=== PATIENT | female | born 1955 | race Caucasian/White ===

== ENCOUNTER 2018-01-29 10:22 | Day surgery (SDC) | payer OTHER ==
[~2018-01-29 10:22] MED LIST: Kenalog-40 ONE; Marcaine 0.5% SDV 10 ML ONE; Xylocaine 1% Vial 30 ML PF IJ ONE
[2018-01-29] MEDS ORDERED: EMLA Cream 5 GM TP ONE (11:41)
--- NOTE | 2018-01-29 14:24 | XRAY ---
Indication: Right superior clunel nerve block. Intraoperative fluoroscopy was provided for 22 seconds. 2 digital spot images submitted for interpretation demonstrates 2 spinal needles projecting over the right iliac crest. Correlate with intraoperative findings/report.
--- NOTE | 2018-01-29 14:52 | XRAY ---
22 seconds fluoroscopy time in surgery for right superior clunel NB.
--- NOTE | 2018-01-30 13:01 | OP ---
DATE OF PROCEDURE: 01/29/2018 1158 SURGEON: Barak Segovia D.O. PROCEDURES PERFORMED: Right superior cluneal nerve block under fluoroscopic guidance. DESCRIPTION OF PROCEDURE: After consent was obtained, the patient was taken to the procedure room and laid in the prone position on the table. The skin over the injection site was prepped and draped in sterile fashion. And bony anatomy at the targeted injection site was visualized. Local anesthetic agent was introduced to anesthetize the skin in the subcutaneous tissue through injection site. A standard 25 Gauge needle was advanced into the target site with preservative free medication of 0.5 cc of 1% lidocaine preservative free plus 0.5% Marcaine 0.5 cc plus Kenalog 40 mg was injected. Skin was cleansed with alcohol and then a bandage was applied. No complications or adverse consequences were observed. There is 100% pain reduction after this procedure. The patient will be followed up at the next visit for re-evaluation.
== END 2018-01-29 12:30 | disposition home or self-care (01) ==
LOC: SDC-PAIN 10:22
PROVIDERS: ATTEND Internal Medicine
DX: M46.1 Sacroiliitis, not elsewhere classified (principal); M54.5 Low back pain; M46.92 Unspecified inflammatory spondylopathy, cervical region; Z79.891 Long term (current) use of opiate analgesic
CPT/HCPCS: 64450; 72020; 77003; J2001; J3301; A9270-GY

== ENCOUNTER 2018-04-02 12:01 | Day surgery (SDC) | payer OTHER ==
[2018-04-02] MEDS ORDERED: Marcaine 0.5% SDV 10 ML IJ ONE (12:02)
[2018-04-02] MEDS ORDERED: DIPRIVAN 200 MG/20 ML IV ONE (12:02)
[2018-04-02] MEDS ORDERED: solu-MEDROL 40 MG IV ONE (12:02)
[2018-04-02] MEDS ORDERED: LIDOCAINE HCL 1% AMPUL 5 ML IJ ONE (12:02)
[2018-04-02] MEDS ORDERED: Lactated Ringers 1,000 ML IV ONE (14:15)
--- NOTE | 2018-04-02 15:38 | XRAY ---
Indication: Right hip injection. Intraoperative fluoroscopy was provided for 16 seconds. Single digital spot image demonstrates spinal needle tip projecting over the femur neck. Correlate with intraoperative findings/report.
--- NOTE | 2018-04-02 17:00 | XRAY ---
16 seconds fluoroscopy time in surgery for right hip steroid injection.
--- NOTE | 2018-04-03 11:16 | OP ---
DATE OF PROCEDURE: 04/02/2018 1443 SURGEON: Barak Segovia D.O. PREOPERATIVE DIAGNOSIS: Right hip degenerative changes, osteoarthritis, right hip pain. POSTOPERATIVE DIAGNOSIS: Right hip degenerative changes, osteoarthritis, right hip pain. PROCEDURES PERFORMED: Right hip steroid injection under fluoroscopic guidance with anesthesia. DESCRIPTION OF PROCEDURE: After consent was obtained, the patient was taken to the procedure room and laid in the prone position on the table. The skin over the injection site was prepped and draped in sterile fashion. And bony anatomy at the targeted injection site was visualized. Local anesthetic agent was introduced to anesthetize the skin in the subcutaneous tissue through injection site. A standard 25 Gauge needle was advanced into the target site with preservative free medication of Solu-Medrol 40 mg was injected. Skin was cleansed with alcohol and then a bandage was applied. No complications or adverse consequences were observed. Preoperative pain level 8 or 9 out of 10 and postoperative pain level 3 out of 10. The patient will be followed up at the next visit for reevaluation.
== END 2018-04-02 14:30 | disposition home or self-care (01) ==
LOC: SDC-PAIN 12:01
PROVIDERS: ATTEND Internal Medicine
DX: M25.551 Pain in right hip (principal); M54.5 Low back pain; Z79.891 Long term (current) use of opiate analgesic
CPT/HCPCS: 20610; 73501; 77002; 77003; J2704; J2920

== ENCOUNTER 2018-07-31 06:06 | Day surgery (SDC) | payer OTHER ==
[2018-07-31] MEDS ORDERED: Ketamine HCl 50 MG/ML IV ONE (06:07)
[2018-07-31] MEDS ORDERED: DIPRIVAN 200 MG/20 ML IV ONE (06:07)
[2018-07-31] MEDS ORDERED: Lactated Ringers 1,000 ML IV SCH (06:30)
[2018-07-31 08:58] VITALS: O2SAT 100
[2018-07-31 09:19] VITALS: BP 114/73; PULSE 66
--- NOTE | 2018-07-31 10:13 | OP ---
SURGERY DATE/TIME: 07/31/2018 0805 PREOPERATIVE DIAGNOSIS: Screening colonoscopy. POSTOPERATIVE DIAGNOSES: 1) Normal colon. 2) Poor bowel prep. PROCEDURE: Colonoscopy. SURGEON: Serjio Mcclain M.D. ANESTHESIA: MAC by Avery Mcnamara CRNA. ESTIMATED BLOOD LOSS: None. SPECIMENS: None. DESCRIPTION OF PROCEDURE: After informed written consent was obtained, the patient was taken to the endoscopy suite. She underwent monitored anesthesia and a digital rectal exam showed normal sphincter tone and no internal lesions. The scope was inserted into the rectum and sequentially the entire colonic mucosa was traversed. The level of cecum was reached and verified with direct visualization of ileocecal valve. There was liquid and semi-solid stool present throughout the entire length of the colon making visualization difficult although there were no obvious polyps or mucosal abnormalities appreciable. Prior to withdrawal retroflexion was performed and showed no internal lesions. The scope was removed and the patient was transferred to the recovery room in good condition.
== END 2018-07-31 09:21 | disposition home or self-care (01) ==
LOC: SDC 06:06
PROVIDERS: ATTEND Family Medicine
DX: Z12.11 Encounter for screening for malignant neoplasm of colon (principal); I10 Essential (primary) hypertension; K21.9 Gastro-esophageal reflux disease without esophagitis
CPT/HCPCS: J2704

== ENCOUNTER 2019-05-06 09:53 | Day surgery (SDC) | payer OTHER ==
[2019-05-06] MEDS ORDERED: Marcaine 0.5% SDV 10 ML IJ ONE (09:54)
[2019-05-06] MEDS ORDERED: Xylocaine 1% Vial 30 ML PF IJ ONE (09:54)
[2019-05-06] MEDS ORDERED: Depo-Medrol 40 MG/ML IM ONE (09:54)
[2019-05-06] MEDS ORDERED: VERSED 5 MG/5 ML ONE (10:59)
--- NOTE | 2019-05-06 12:48 | XRAY ---
9 seconds fluoroscopy time in surgery for right SI joint injection.
--- NOTE | 2019-05-06 12:48 | XRAY ---
Indication: Right SI joint injection. Intraoperative fluoroscopy was provided for 9 seconds. 2 digital spot images submitted for interpretation demonstrates posterior needle tip projecting over the inferior right SI joint. Correlate with intraoperative findings/report.
[2019-05-06] MEDS ORDERED: Lactated Ringers 1,000 ML IV ONE (13:33)
== END 2019-05-06 12:00 | disposition home or self-care (01) ==
LOC: SDC-PAIN 09:53
PROVIDERS: ATTEND Psychiatry & Neurology Pain Medicine
DX: M46.1 Sacroiliitis, not elsewhere classified (principal); I10 Essential (primary) hypertension; M19.90 Unspecified osteoarthritis, unspecified site
CPT/HCPCS: 27096; 72020; 77002; J1030; J2001; J2250; G0260

== ENCOUNTER 2019-06-24 13:29 | Day surgery (SDC) | payer OTHER ==
[2019-06-24] MEDS ORDERED: Xylocaine 1% Vial 30 ML PF IJ ONE (13:30)
[2019-06-24] MEDS ORDERED: Marcaine 0.5% SDV 10 ML IJ ONE (13:30)
[2019-06-24] MEDS ORDERED: Depo-Medrol 40 MG/ML IM ONE (13:30)
[2019-06-24] MEDS ORDERED: VERSED 5 MG/5 ML ONE (14:14)
[2019-06-24] MEDS ORDERED: Lactated Ringers 1,000 ML IV ONE (15:57)
--- NOTE | 2019-06-24 16:31 | XRAY ---
Indication: Right hip injection. Intraoperative fluoroscopy was provided for 26 seconds. Single digital spot image obtained prone demonstrates needle tip projecting just lateral to the right greater trochanter. Small amount of contrast injected for needle tip placement. Correlate with intraoperative findings/report.
--- NOTE | 2019-06-24 16:43 | XRAY ---
26 seconds fluoroscopy time in surgery for right hip injection.
== END 2019-06-24 15:10 | disposition home or self-care (01) ==
LOC: SDC-PAIN 13:29
PROVIDERS: ATTEND Psychiatry & Neurology Pain Medicine
DX: M70.61 Trochanteric bursitis, right hip (principal); I10 Essential (primary) hypertension; Z79.899 Other long term (current) drug therapy
CPT/HCPCS: 73501; 77002; J1030; J2001; J2250

== ENCOUNTER 2019-07-15 14:11 | Day surgery (SDC) | payer OTHER ==
[2019-07-15] MEDS ORDERED: Marcaine 0.5% SDV 10 ML IJ ONE (14:12)
[2019-07-15] MEDS ORDERED: Xylocaine 1% Vial 30 ML PF IJ ONE (14:12)
[2019-07-15] MEDS ORDERED: Depo-Medrol 40 MG/ML IM ONE (14:12)
[2019-07-15] MEDS ORDERED: VERSED 5 MG/5 ML ONE ×2 (14:26→14:57)
[2019-07-15] MEDS ORDERED: Lactated Ringers 1,000 ML IV ONE (15:27)
--- NOTE | 2019-07-15 16:19 | XRAY ---
Indication: Left intra-articular hip injection. Intraoperative fluoroscopy was provided for 28 seconds. 2 digital spot images submitted for interpretation demonstrates needle tip just lateral to the femur head. Small amount of contrast injected for needle tip placement. Correlate with intraoperative findings/report.
--- NOTE | 2019-07-15 16:31 | XRAY ---
28 seconds fluoroscopy time in surgery for right intra-articular hip injection.
== END 2019-07-15 15:43 | disposition home or self-care (01) ==
LOC: SDC-PAIN 14:11
PROVIDERS: ATTEND Psychiatry & Neurology Pain Medicine
DX: M16.11 Unilateral primary osteoarthritis, right hip (principal); I10 Essential (primary) hypertension; Z79.899 Other long term (current) drug therapy
CPT/HCPCS: 20610; 73501; 77002; J1030; J2001; J2250; Q9966

== ENCOUNTER 2020-01-27 11:17 | Day surgery (SDC) | payer OTHER ==
[2020-01-27] MEDS ORDERED: Depo-Medrol 40 MG/ML IM ONE (11:18)
[2020-01-27] MEDS ORDERED: Marcaine 0.5% SDV 10 ML IJ ONE (11:18)
[2020-01-27] MEDS ORDERED: VERSED 5 MG/5 ML ONE (12:09)
[2020-01-27] MEDS ORDERED: Lactated Ringers 1,000 ML IV ONE (13:39)
--- NOTE | 2020-01-27 14:21 | XRAY ---
Indication: Right hip injection. Intraoperative fluoroscopy was provided for 14 seconds. Single digital spot image submitted for interpretation demonstrates needle tip just lateral to the right femur head. Small amount of contrast injected for needle tip placement. Correlate with intraoperative findings/report.
--- NOTE | 2020-01-27 14:23 | XRAY ---
14 seconds fluoroscopy time in surgery for right intra-articular knee injection.
[2020-01-27] MEDS ORDERED: Xylocaine 1% Vial 30 ML PF IJ ONE (16:06)
== END 2020-01-27 13:08 | disposition home or self-care (01) ==
LOC: SDC-PAIN 11:17
PROVIDERS: ATTEND Psychiatry & Neurology Pain Medicine
DX: M16.11 Unilateral primary osteoarthritis, right hip (principal); I10 Essential (primary) hypertension; Z79.899 Other long term (current) drug therapy
CPT/HCPCS: 20610; 73501; 77002; J1030; J2001; J2250; Q9966

== ENCOUNTER 2021-08-23 13:23 | Day surgery (SDC) | payer OTHER ==
[2021-08-23] MEDS ORDERED: Depo-Medrol 40 MG/ML IM ONE (13:24)
[2021-08-23] MEDS ORDERED: BUPIVACAINE 0.5% VIAL IJ ONE (13:24)
[2021-08-23] MEDS ORDERED: Xylocaine 1% Vial 30 ML PF IJ ONE (13:24)
[2021-08-23] MEDS ORDERED: VERSED 5 MG/5 ML ONE (14:57)
[2021-08-23] MEDS ORDERED: DIPRIVAN 200 MG/20 ML IV ONE (15:00)
[2021-08-23] MEDS ORDERED: Lactated Ringers 1,000 ML IV ONE (16:16)
--- NOTE | 2021-08-24 11:20 | XRAY ---
32 seconds fluoroscopy time in surgery for intra-articular and greater trochanteric bursa of the right hip.
--- NOTE | 2021-08-26 23:02 | XRAY ---
Indication: Right greater trochanteric bursa injection and intra-articular right hip injection. Intraoperative fluoroscopy was provided for 32 seconds. 2 digital spot images are submitted for interpretation. On the first image, a needle tip has been directed toward the upper lateral margin of the greater trochanter. Contrast has been injected for needle tip placement. Correlate with intraoperative findings/report. On the second image, another needle tip has been directed toward the lateral margin of the upper aspect of the right femoral neck. A small amount of contrast has again been injected for needle tip placement. Correlate with intraoperative findings/report.
== END 2021-08-23 15:35 | disposition home or self-care (01) ==
LOC: SDC-PAIN 13:23
PROVIDERS: ATTEND Psychiatry & Neurology Pain Medicine
DX: M16.11 Unilateral primary osteoarthritis, right hip (principal); M70.61 Trochanteric bursitis, right hip; Z79.899 Other long term (current) drug therapy
CPT/HCPCS: 20610; 73502; 77002; J1030; J2001; J2250; J2704; Q9966

== ENCOUNTER 2023-04-25 06:31 | Day surgery (SDC) | payer MEDICARE, OTHER ==
[~2023-04-25 06:31] MED LIST changes: -Kenalog-40 ONE; +Lactated Ringers 1,000 ML IV SCH; -Marcaine 0.5% SDV 10 ML ONE; -Xylocaine 1% Vial 30 ML PF IJ ONE
[2023-04-25] MEDS ORDERED: Lactated Ringers 1,000 ML IV ONE (06:32)
[2023-04-25] MEDS ORDERED: Xylocaine-Mpf 2% 5 Ml Vial ONE (07:51)
[2023-04-25] MEDS ORDERED: DIPRIVAN 200 MG/20 ML IV ONE ×2 (07:51→08:16)
[2023-04-25 09:02] VITALS: O2SAT 98
[2023-04-25 09:11] VITALS: BP 138/59; PULSE 75
--- NOTE | 2023-04-25 09:27 | OP ---
SURGERY DATE/TIME: 04/25/2023 0804 PREOPERATIVE DIAGNOSIS: Screening colonoscopy. POSTOPERATIVE DIAGNOSIS: Colon polyps x4. PROCEDURE: Colonoscopy. SURGEON: Serjio Mcclain M.D. ANESTHESIA: MAC by Joce Fay CRNA. ESTIMATED BLOOD LOSS: Minimal. SPECIMENS: Four hot forceps polypectomies. DESCRIPTION OF PROCEDURE: After informed written consent was obtained, the patient was taken to the endoscopy suite. She was placed in left lateral decubitus position and anesthesia was titrated to desired level of consciousness. Digital rectal exam showed normal sphincter tone and no internal lesions. The scope was inserted into the rectum and sequentially the entire colonic mucosa was traversed. The level of cecum was reached and verified with direct visualization of the ileocecal valve. Upon withdrawal careful mucosal inspection revealed a small sessile polyp in the ascending colon that is grasped with forceps, cauterized, removed in its entirety and sent for pathology testing. Upon further withdrawal in the distal sigmoid colon there were three small sessile polyps in near proximity to each other. They were all likewise grasped with forceps, cauterized and removed in entirety with no bleeding. Those were all sent in the same specimen container due to the close proximity in the distal sigmoid. On further withdrawal, no other lesions were encountered. Retroflexion performed prior to withdrawal showed no internal lesions. The scope was removed and the patient was transferred to the recovery room in good condition.
== END 2023-04-25 09:25 | disposition home or self-care (01) ==
LOC: SDC 06:31
PROVIDERS: ATTEND Family Medicine
DX: Z12.11 Encounter for screening for malignant neoplasm of colon (principal); D12.2 Benign neoplasm of ascending colon; D12.5 Benign neoplasm of sigmoid colon
CPT/HCPCS: J2704